=== PATIENT | female | born 2000 | race Two or more races ===

== ENCOUNTER 2025-06-04 22:20 | Emergency (ER) | payer MEDICAID, OTHER ==
[~2025-06-04] VITALS: Ht 165.1 cm; Wt 68.2 kg
[2025-06-04 22:21] VITALS: BP 112/79; PULSE 97; RESP 18; TEMP 98.3; O2SAT 98
[2025-06-04] MEDS ORDERED: levETIRAcetam 500 MG TAB PO ONE (22:30)
--- NOTE | 2025-06-04 23:34 | ED.PDOC ---
History of Present Illness HPI Comments This patient is a 25-year-old female who arrives the ED today for evaluation of a seizure event that occurred approximately 2 hours prior to arrival. According to the patient, she had a seizure event after having a conversation with the returning. Boyfriend film the event and showed me the seizure. Seizure was a probable pseudo seizure with absent components. Patient denies any fever nausea or vomiting. Patient states she has had some other seizure events over the past two months in his waiting follow up with the neurologist. Vital signs were stable on arrival. Chief Complaint: Seizure Time Seen by MD: 22:22 Reviewed Notes: Nurses Notes Allergies: Coded Allergies: NO KNOWN ALLERGIES (Unverified , 06/04/25) Information Source: Patient, Friend Mode of Arrival: Ambulatory Severity: Moderate Timing: Hours Duration: Minutes Prehospital treatment: None Past Medical History PAST MEDICAL HISTORY: Denies Past Medical History (Other): Patient states recent seizures over the past few months. Surgical History: Denies all surgeries LEAD MINER BLASTING History: No Pertinent LEAD MINER BLASTING History Family History Family History: Reviewed,noncontributory to illness, No family hx of Cancer, No family hx of DM, No family hx of Heart [place], No family hx of HTN, No family hx ofKidney win[place], No family hx of Liver [place], No family hx of Lung win[place], No family hx of Stroke Social History Smoker: Non-Smoker Alcohol: Denies ETOH Use Drugs: Denies Drug Use Lives In: Home Constitutional: denies: chills, diaphoresis, fatigue, fever, malaise, sweats, weakness, others EENTM: denies: blurred vision, double vision, ear bleeding, ear discharge, ear drainage, ear pain, ear ringing, eye pain, eye redness, hearing loss, mouth pain, mouth swelling, nasal discharge, nose bleeding, nose congestion, nose pain, photophobia, tearing, throat pain, throat swelling, voice changes, others Respiratory: denies: cough, hemoptysis, orthopnea, SOB at rest, shortness of breath, SOB with excertion, stridor, wheezing, others Cardiovascular: denies: chest pain, dizzy spells, diaphoresis, Dyspnea on exertion, edema, irregular heart beat, left arm pain, lightheadedness, palpitations, PND, syncope, others Gastrointestinal: denies: abdomen distended, abdominal pain, blood streaked bowels, constipated, diarrhea, dysphagia, difficulty swallowing, hematemesis, melena, nausea, poor appetite, poor fluid intake, rectal bleeding, rectal pain, vomiting, others Genitourinary: denies: abnormal vagina bleeding, burning, dyspareunia, dysuria, flank pain, frequency, hematuria, incontinence, pain, , vagina discharge, urgency, others Neurological: reports: seizure; denies: dizziness, fainting, headache, left sided numbness, left sided weakness, numbness, paresthesia, pre-existing deficit, right sided numbness, right sided weakness, speech problems, tingling, tremors, weakness, others Musculoskeletal: denies: back pain, gout, joint pain, joint swelling, muscle pain, muscle stiffness, neck pain, others Integumetry: denies: bruises, change in color, change in hair/nails, dryness, laceration, lesions, lumps, rash, wounds, others Allergic/Immunocompromised: denies: Difficulty Healing, Frequent Infections, Hives, Itching, others Hematologic/Lymphatic: denies: anemia, blood clots, easy bleeding, easy bruising, swollen glands, others Endocrine: denies: excessive hunger, excessive sweating, excessive thirst, excessive urination, flushing, intolerance to cold, intolerance to heat, unexplained weight gain, unexplained weight loss, others Psychiatric: denies: anxiety, bipolar disorder, depression, hopeless, panic disorder, schizophrenia, sleepless, suicidal, others Physical Exam General Appearance: No Apparent Distress (Patient was in no distress at time of evaluation. Patient complain of a mild headache.), Normal HEENT: Head (Cranial exam was unremarkable. No signs of trauma. No skull depressions or deformities.), Normal ENT Inspection, Pharynx Normal, TMs Normal Neck: Full Range of Motion, Non-Tender, Normal, Normal Inspection Respiratory: Chest Non-Tender, Lungs Clear, No Accessory Muscle Use, No Respiratory Distress, Normal Breath Sounds Cardiovascular: No Edema, No JVD, No Murmur, No Gallop, Normal Peripheral Pulses, Regular Rate/Rhythm Breast Exam: Deferred Gastrointestinal: No Organomegaly, Non Tender, No Pulsatile Mass, Normal Bowel Sounds, Soft Genitalia: Deferred Pelvic: Deferred Rectal: Deferred Extremities: No calf tenderness, Normal capillary refill, Normal inspection, Normal range of motion, Non-tender, No pedal edema Neurologic: Alert Cerebellar Function: NOT DONE Reflexes: NOT DONE Skin: Dry, Normal Color, Warm Lymphatic: No Adenopathy Was a procedure done? Was a procedure done?: No Differential Dx Considerations may include: Pseudo-seizure, electrolyte abnormality, sepsis, UTI X-Ray, Labs, Meds, VS Vital Signs Date Time Temp Pulse Resp B/P (MAP) Pulse Ox O2 Delivery O2 Flow Rate FiO2 06/04/25 22:21 98.3 97 18 112/79 98 98.3 X-Ray, Labs, Meds, VS Comment Multiple attempts were made to locate the patient for a blood draw and medication dispensing, nursing informed me the patient appears to have eloped from the facility. Time of 1ST Reevaluation: 23:32 Reevaluation 1ST: Unchanged Consultation: PCP Patient Education/Counseling: Diagnosis, Treatment Family Education/Counseling: Diagnosis, Treatment SEPSIS Sepsis Screen Date sepsis recognized/suspect: Jun 04, 2025 Time Sepsis recognized/suspect: 2226 Recent Procedure: No On Antibiotic Therapy: No Respiratory Rate >20: No Heart Rate >90: No Temp<36 C (96.8 F) or >38.3 C: No SBP <90 or MAP <65 mmHG: No New Acute Mental Status Change: No Is the patient on CPAP, BIPAP,: No Physician Orders Urinalysis (06/04/25 22:28) Test, Urine (06/04/25 22:28) Troponin-I Hs (06/05/25 01:28) Electrocardigram (06/04/25 22:28) Vital Signs Date Time Temp Pulse Resp B/P (MAP) Pulse Ox O2 Delivery O2 Flow Rate FiO2 06/04/25 22:21 98.3 97 18 112/79 98 98.3 Departure 1 Departure Time of Disposition: 23:32 Impression: Primary Impression: Normal exam Disposition: LEFT AWOL/ELOPED Condition: Stable Discharged With: Self, Friend Critical Care Note Critical Care Time?: No Stability Stability form required: No Heart Score Heart Score: Heart Score Response (Comments) Value History N/A 0 EKG N/A 0 Age N/A 0 Risk Factors N/A 0 Troponin N/A 0 Total 0 JASMYNE KNOX PAC Jun 04, 2025 23:34
== END 2025-06-05 | disposition left against medical advice (07) ==
LOC: ER 22:20
DX: R56.9 Unspecified convulsions (principal); Z87.898 Personal history of other specified conditions